=== PATIENT | male | born 1985 | race Two or more races ===

== ENCOUNTER 2017-07-19 19:36 | Emergency (ER) | payer SELFPAY ==
[2017-07-19 21:56] LABS: INFLUENZA A PATIENT POSITIVE (NEGATIVE)
[2017-07-19 21:57] LABS: INFLUENZA B PATIENT NEGATIVE (NEGATIVE); OBC FLU VALID
== END 2017-07-19 22:35 | disposition home or self-care (01) ==
LOC: ER 19:36
DX: J09.X2 Influenza due to identified novel influenza A virus with other respiratory manifestations (principal)
CPT/HCPCS: 87804; 87804-59; 99284